=== PATIENT | male | born 1965 | race African-American/Black ===

== ENCOUNTER 2021-03-21 05:19 | Day surgery (SDC) | payer OTHER ==
[2021-03-20 15:24] VITALS: BMI 26.2
[2021-03-21 07:36] VITALS: TEMP 97.8
[2021-03-21 10:44] VITALS: BP 117/78; PULSE 68
== END 2021-03-21 10:45 | disposition home or self-care (01) ==
LOC: JASU-SURG 05:19
PROVIDERS: ATTEND Surgery
PROC: 0JB10ZZ Excision of Face Subcutaneous Tissue and Fascia, Open Approach (ICD-10-PCS; principal; 2021-03-21)
DX: D21.0 Benign neoplasm of connective and other soft tissue of head, face and neck (principal)
CPT/HCPCS: 88304-TC